=== PATIENT | male | born 1950 | race Caucasian/White ===

== ENCOUNTER → 2019-07-09 | Outpatient (CLI) | payer MEDICARE ==
--- NOTE | 2019-07-09 15:39 | KCIC ---
CT scan chest without contrast 07/09/2019 CLINICAL HISTORY: Bronchitis with bronchospasm. Chest discomfort. Left-sided chest pain. Shortness of breath and cough. TECHNIQUE: Unenhanced, contiguous, 5 mm axial sections were obtained through the chest and upper abdomen. One or more of the following individualized dose reduction techniques were utilized for this study: 1. Automated exposure control. 2. Adjustment of the mA and/or kV according to patient size. 3. Use of iterative reconstruction technique. FINDINGS: Comparison study is dated 12/03/2015. Atherosclerotic calcification of the thoracic aorta and its branches is noted. The thoracic aorta is mildly tortuous but tapers normally. The heart is borderline enlarged. Extensive coronary artery calcifications are seen. Small calcified right hilar and mediastinal lymph nodes are noted. No hilar, mediastinal or axillary lymphadenopathy is seen. Calcified granulomas are seen involving the right lower lobe. These measure 4 to 8 mm in size. No area of consolidation is seen. No pneumothorax or pleural effusion is noted. No noncalcified pulmonary nodule is seen. Images through the upper abdomen demonstrate atherosclerotic calcification of the abdominal aorta and its branches. Degenerative changes are seen involving the thoracic spine. IMPRESSION: No acute abnormality is seen. Electronically signed by: Lamont Weinstein MD (07/09/2019 3:36 PM) [facility] [place]
== END ==
LOC: KCIC CT 10:21
PROVIDERS: ATTEND Family Medicine
DX: J20.9 Acute bronchitis, unspecified (principal); R07.89 Other chest pain; I70.0 Atherosclerosis of aorta; J84.10 Pulmonary fibrosis, unspecified; M47.814 Spondylosis without myelopathy or radiculopathy, thoracic region; Z87.891 Personal history of nicotine dependence; Z80.1 Family history of malignant neoplasm of trachea, bronchus and lung
CPT/HCPCS: 71250